=== PATIENT | female | born 1955 | race Caucasian/White ===

== ENCOUNTER 2017-10-01 00:27 | Emergency (ER) | payer BC ==
--- NOTE | 2017-10-01 00:51 | EDM.PDOC ---
ED HPI GENERAL MEDICAL PROBLEM - General Chief Complaint: Abdominal Pain Stated Complaint: STARTED WITH FLU NOW BAD STOMACH PAINS Time Seen by Provider: 10/01/17 00:51 Source of Information: Reports: Patient History Limitations: Reports: No Limitations - History of Present Illness INITIAL COMMENTS - FREE TEXT/NARRATIVE: 62-year-old female presents to the ED with history of acute onset of nausea and vomiting and profuse diarrhea 2 days after [place]--Sep 28. Subsequently has developed increasing abdominal pain. It is constant with a colicky component. Pain is rated at 8 out of 10 at this time. She reports not passing any flatus over the last 12 hours. Pain is worsened by movement and by riding in the car. Intermittent feeling of being very hot and then cold but no definitive rigors. Minimal fluid intakes such as coffee and 7-Up over the last 24 hours. No further vomiting but nausea is intermittent. Strong feeling of need to burp or belch or pass gas but unable to do so. Insulin-dependent type 2 diabetic. Patient usually takes 17 units of NovoLog with breakfast 13 units with dinner and 20 units with supper. She has not taken any insulin for 2 days due to feeling ill. And not eating. She has not been checking her sugars. Patient also uses Tradjenta 53 units at bedtime but has not taken this for 2 days either. She did take all of her normal medications yesterday morning and the stay down. Denies any chest pain or cough or sputum production. Previous abdominal surgery as a with a tubal ligation at the same time 33 years ago. Onset: Gradual Onset Date: 09/28/17 Onset Time: 20:00 Duration: Day(s): Location: Reports: Abdomen (Initial pain seemed to be right lower quadrant and then subsequently became more generalized and now hurts her.) Quality: Reports: Ache (Constant pain with a colicky component.) Severity: Severe Improves with: Reports: None Worsens with: Reports: Other (Coughing sneezing laughing and riding in the car to the hospital.), Movement Context: Denies: Activity, Exercise, Lifting, Sick Contact, Trauma, Other Associated Symptoms: Reports: Fever/Chills, Loss of Appetite, Malaise, Nausea/ Vomiting (No vomiting since September 28 evening but intermittent nausea associated with the severity of the pain.). Denies: Chest Pain, Cough, cough w sputum, Diaphoresis, Headaches, Rash ( Saturday evening. A 2 days ago), Seizure , Shortness of Breath, Syncope Treatments COMMUNICATIONS EDITOR: Reports: Other (see below) (None.) Abdomen Pain Score (Numeric/FACES): 6 - Related Data Allergies Allergy/AdvReac Type Severity Reaction Status Date / Time lisinopril Allergy Hives Verified 10/01/17 00:35 shrimp Allergy Vomiting Verified 10/01/17 00:35 Sulfa (Sulfonamide Allergy Rash Verified 10/01/17 00:35 Antibiotics) Home Meds: Home Meds Aspirin 81 mg PO DAILY 10/01/17 [History] Insulin Aspart [NovoLOG] 13 unit SQ ACLUNCH 10/01/17 [History] Insulin Aspart [NovoLOG] 17 unit SQ ACBREAKFAST 10/01/17 [History] Insulin Aspart [NovoLOG] 20 unit SQ ACDINNER 10/01/17 [History] Insulin Glargine,Hum.Rec.Anlog [Toujeo Solostar] 53 unit SQ BEDTIME 10/01/17 [ History] Triamterene/Hydrochlorothiazid [Triamterene-Hctz 50-25 mg Cap] 10/01/17 [ History] Valsartan 10/01/17 [History] Verapamil 10/01/17 [History] cloNIDine [Catapres] 10/01/17 [History] Past Medical History HEENT History: Reports: Impaired Vision Other HEENT History: Wears glasses Cardiovascular History: Reports: High Cholesterol, Hypertension Musculoskeletal History: Reports: Arthritis Psychiatric History: Reports: Depression Endocrine/Metabolic History: Reports: Diabetes, Type II (Using insulin to control her blood sugars.), Obesity/BMI 30+ - Past Surgical History GI Surgical History: Reports: Colonoscopy Female Surgical History: Reports: Section (One with a tubal ligation same time 33 years ago.), Tubal Ligation Endocrine Surgical History: Reports: Parathyroidectomy Musculoskeletal Surgical History: Reports: ORIF Social & Family History - Tobacco Use Smoking Status *Q: Never Smoker - Recreational Drug Use Recreational Drug Use: No - Living Situation & Occupation Living situation: Reports: Occupation: Employed ED ROS GENERAL - Review of Systems Review Of Systems: See Below Constitutional: Reports: Fever, Chills, Malaise, Weakness, Decreased Appetite HEENT: Reports: No Symptoms Respiratory: Reports: No Symptoms Cardiovascular: Reports: No Symptoms Endocrine: Reports: Fatigue, High Glucose, Other (Patient has known type 2 diabetes controlled with NovoLog insulin with each meal and try and Trajenta 53 units at hs. last hemoglobin A1c was reported to be 6.9.) GI/Abdominal: Reports: Abdominal Pain (See history of present illness), Diarrhea (At onset of illness 2 days ago but no bowel movement since that time.) , Decreased Appetite, Nausea, Vomiting. Denies: Difficulty Swallowing, Flatus : Reports: Frequency (She feels frequency and is an effort to help with the abdominal pain.). Denies: Incontinence Musculoskeletal: Reports: Joint Pain (Knees hips low back at times.) Skin: Reports: No Symptoms Neurological: Reports: No Symptoms Psychiatric: Reports: No Symptoms Hematologic/Lymphatic: Reports: No Symptoms ED EXAM, GI/ABD - Physical Exam Exam: See Below Exam Limited By: No Limitations General Appearance: Alert, WD/WN, Mild Distress Eyes: Bilateral: Normal Appearance (No jaundice.) Throat/Mouth: Other Head: Atraumatic (Tongue is mildly dry and coated), Normocephalic Neck: Normal Inspection, Supple, Non-Tender, Full Range of Motion Respiratory/Chest: No Respiratory Distress, Lungs Clear, Normal Breath Sounds, No Accessory Muscle Use Cardiovascular: Normal Peripheral Pulses, Regular Rate, Rhythm, No Edema, No Murmur GI/Abdominal Exam: No Abnormal Bruit, Distended (The abdomen is diffusely distended and tympanitic to percussion. It is firm to palpation.), Guarding, Tender (Throughout the abdomen suggestive of peritonitis. Not able to localize pain to any one quadrant.), Abnormal Bowel Sounds (Intermittent high-pitched bowel sounds i.e. tympanitic.), Other (Abdominal girth and distention do not allow palpation of solid organs.). No: Normal Bowel Sounds Extremities: Normal Inspection, Normal Range of Motion, Non-Tender, No Pedal Edema Neurological: Alert, Oriented, CN II-XII Intact, Normal Cognition Psychiatric: Normal Affect, Normal Mood Skin Exam: Warm, Dry, Intact, Normal Color, No Rash EKG INTERPRETATION EKG Date: 10/01/17 Time: 01:25 Rhythm: NSR Rate (Beats/Min): 95 [place]: Normal P-Wave: Present QRS: Other (Decreased voltage precordial leads.) ST-T: Other (There is a delayed repolarization pattern. T-wave flattening in V3 to V5 and aVL an inversion of T-wave 1-3 and aVF nonspecific findings.) EKG Interpretation Comments: Borderline ECG Course - Vital Signs Last Recorded V/S: Last Vital Signs Temp 36.4 C 10/01/17 00:40 Pulse 100 10/01/17 00:40 Resp 16 10/01/17 00:40 BP 165/76 H 10/01/17 00:40 Pulse Ox 94 L 10/01/17 00:40 - Orders/Labs/Meds Orders: Active Orders 24 hr Category Date Time Status Blood Glucose Check, Bedside [RC] ONETIME Care 10/01/17 03:30 Active EKG Documentation Completion [RC] STAT Care 10/01/17 01:05 Active Abdomen 1V Flat [CR] Stat Exams 10/01/17 01:05 Taken Abdomen Pelvis w Cont [CT] Stat Exams 10/01/17 02:16 Taken Chest 1V Frontal [CR] Stat Exams 10/01/17 03:41 Taken CULTURE BLOOD [BC] Stat Lab 10/01/17 01:15 Received CULTURE BLOOD [BC] Stat Lab 10/01/17 01:28 Received CULTURE URINE [RM] Stat Lab 10/01/17 01:47 Received Insulin Regular, Human [HumuLIN R] 100 unit Med 10/01/17 04:15 Active Sodium Chloride 0.9% [Normal Saline] 99 ml IV ASDIRECTED Sodium Chloride 0.9% [Normal Saline] 1,000 ml Med 10/01/17 01:15 Active IV ASDIRECTED Sodium Chloride 0.9% [Normal Saline] 1,000 ml Med 10/01/17 04:15 Active IV ASDIRECTED Blood Culture x2 Reflex Set [OM.PC] Stat Oth 10/01/17 01:06 Ordered Medication Orders Sodium Chloride (Normal Saline) 1,000 mls @ 999 mls/hr IV ASDIRECTED JENNY Last Infusion: 10/01/17 03:43 Dose: 999 mls/hr Admin: 10/01/17 01:22 Dose: 500 mls/hr Insulin Human Regular 100 unit (/ Sodium Chloride) 100 mls @ 5 mls/hr IV ASDIRECTED JENNY PRN Reason: 5 UNIT/HR Last Admin: 10/01/17 04:21 Dose: 5 unit/hr, 5 mls/hr Sodium Chloride (Normal Saline) 1,000 mls @ 999 mls/hr IV ASDIRECTED JENNY Last Admin: 10/01/17 04:20 Dose: 999 mls/hr Labs: Laboratory Tests 10/01/17 10/01/17 10/01/17 Range/Units 01:15 01:15 01:15 WBC 7.44 (3.98-10.04) K/mm3 RBC 4.72 (3.98-5.22) M/mm3 Hgb 14.0 (11.2-15.7) gm/L Hct 42.4 (34.1-44.9) % MCV 89.8 (79.4-94.8) fl MCH 29.7 (25.6-32.2) pg MCHC 33.0 (32.2-35.5) g/dl RDW Std Deviation 46.2 (36.4-46.3) fL Plt Count 207 (182-369) K/mm3 MPV 11.5 (9.4-12.3) fl Neutrophils % (Manual) 59 (40-60) % Band Neutrophils % 14 H (0-10) % Lymphocytes % (Manual) 25 (20-40) % Atypical Lymphs % 0 % Monocytes % (Manual) 2 (2-10) % Eosinophils % (Manual) 0 L (0.7-5.8) % Basophils % (Manual) 0 L (0.1-1.2) Platelet Estimate Adequate Plt Morphology Comment Normal Anisocytosis 1+ sligh RBC Morph Comment Not Reportable ESR 61 H (0-20) mm/hr Sodium 138 (136-145) mEq/L Potassium 2.9 L (3.5-5.1) mEq/L Chloride 96 L (98-107) mEq/L Carbon Dioxide 29 (21-32) mEq/L Anion Gap 15.9 H (5-15) BUN 29 H (7-18) mg/dL Creatinine 1.7 H (0.55-1.02) mg/dL Est Cr Clr Drug Dosing TNP Estimated GFR (MDRD) 30 (>60) mL/min BUN/Creatinine Ratio 17.1 (14-18) Glucose 354 H (80-115) mg/dL POC Glucose (80-115) mg/dL Lactic Acid (0.4-2.0) mmol/L Calcium 9.3 (8.5-10.1) mg/dL Magnesium (1.8-2.4) mg/dl Total Bilirubin 1.8 H (0.2-1.0) mg/dL AST 10 L (15-37) U/L ALT 16 (14-59) U/L Alkaline Phosphatase 55 (46-116) U/L Troponin I (0.00-0.056) ng/mL C-Reactive Protein 45.8 H* (<1.0) mg/dL Total Protein 7.8 (6.4-8.2) g/dl Albumin 3.4 (3.4-5.0) g/dl Globulin 4.4 gm/dL Albumin/Globulin Ratio 0.8 L (1-2) Lipase 70 L (73-393) U/L Urine Color (Yellow) Urine Appearance (Clear) Urine pH (5.0-8.0) Ur Specific [place] (1.005-1.030) Urine Protein (Negative) Urine Glucose (UA) (Negative) Urine Ketones (Negative) Urine Occult Blood (Negative) Urine Nitrite (Negative) Urine Bilirubin (Negative) Urine Urobilinogen (0.2-1.0) Ur Leukocyte Esterase (Negative) Urine RBC (0-5) /hpf Urine WBC (0-5) /hpf Ur Epithelial Cells (0-5) /hpf Urine Bacteria (FEW) /hpf Urine Mucus (FEW) /hpf 10/01/17 10/01/17 10/01/17 Range/Units 01:15 01:15 01:47 WBC (3.98-10.04) K/mm3 RBC (3.98-5.22) M/mm3 Hgb (11.2-15.7) gm/L Hct (34.1-44.9) % MCV (79.4-94.8) fl MCH (25.6-32.2) pg MCHC (32.2-35.5) g/dl RDW Std Deviation (36.4-46.3) fL Plt Count (182-369) K/mm3 MPV (9.4-12.3) fl Neutrophils % (Manual) (40-60) % Band Neutrophils % (0-10) % Lymphocytes % (Manual) (20-40) % Atypical Lymphs % % Monocytes % (Manual) (2-10) % Eosinophils % (Manual) (0.7-5.8) % Basophils % (Manual) (0.1-1.2) Platelet Estimate Plt Morphology Comment Anisocytosis RBC Morph Comment ESR (0-20) mm/hr Sodium (136-145) mEq/L Potassium (3.5-5.1) mEq/L Chloride (98-107) mEq/L Carbon Dioxide (21-32) mEq/L Anion Gap (5-15) BUN (7-18) mg/dL Creatinine (0.55-1.02) mg/dL Est Cr Clr Drug Dosing Estimated GFR (MDRD) (>60) mL/min BUN/Creatinine Ratio (14-18) Glucose (80-115) mg/dL POC Glucose (80-115) mg/dL Lactic Acid 3.5 H (0.4-2.0) mmol/L Calcium (8.5-10.1) mg/dL Magnesium 1.8 (1.8-2.4) mg/dl Total Bilirubin (0.2-1.0) mg/dL AST (15-37) U/L ALT (14-59) U/L Alkaline Phosphatase (46-116) U/L Troponin I < 0.017 (0.00-0.056) ng/mL C-Reactive Protein (<1.0) mg/dL Total Protein (6.4-8.2) g/dl Albumin (3.4-5.0) g/dl Globulin gm/dL Albumin/Globulin Ratio (1-2) Lipase (73-393) U/L Urine Color Yellow (Yellow) Urine Appearance Slt cloudy H (Clear) Urine pH 5.5 (5.0-8.0) Ur Specific [place] 1.020 (1.005-1.030) Urine Protein 2+ H (Negative) Urine Glucose (UA) 2+ H (Negative) Urine Ketones 1+ H (Negative) Urine Occult Blood 2+ H (Negative) Urine Nitrite Negative (Negative) Urine Bilirubin Negative (Negative) Urine Urobilinogen 0.2 (0.2-1.0) Ur Leukocyte Esterase Negative (Negative) Urine RBC 0-5 (0-5) /hpf Urine WBC 5-10 H (0-5) /hpf Ur Epithelial Cells 0-5 (0-5) /hpf Urine Bacteria Rare (FEW) /hpf Urine Mucus Not seen (FEW) /hpf 10/01/17 Range/Units 03:59 WBC (3.98-10.04) K/mm3 RBC (3.98-5.22) M/mm3 Hgb (11.2-15.7) gm/L Hct (34.1-44.9) % MCV (79.4-94.8) fl MCH (25.6-32.2) pg MCHC (32.2-35.5) g/dl RDW Std Deviation (36.4-46.3) fL Plt Count (182-369) K/mm3 MPV (9.4-12.3) fl Neutrophils % (Manual) (40-60) % Band Neutrophils % (0-10) % Lymphocytes % (Manual) (20-40) % Atypical Lymphs % % Monocytes % (Manual) (2-10) % Eosinophils % (Manual) (0.7-5.8) % Basophils % (Manual) (0.1-1.2) Platelet Estimate Plt Morphology Comment Anisocytosis RBC Morph Comment ESR (0-20) mm/hr Sodium (136-145) mEq/L Potassium (3.5-5.1) mEq/L Chloride (98-107) mEq/L Carbon Dioxide (21-32) mEq/L Anion Gap (5-15) BUN (7-18) mg/dL Creatinine (0.55-1.02) mg/dL Est Cr Clr Drug Dosing Estimated GFR (MDRD) (>60) mL/min BUN/Creatinine Ratio (14-18) Glucose (80-115) mg/dL POC Glucose 386 H (80-115) mg/dL Lactic Acid (0.4-2.0) mmol/L Calcium (8.5-10.1) mg/dL Magnesium (1.8-2.4) mg/dl Total Bilirubin (0.2-1.0) mg/dL AST (15-37) U/L ALT (14-59) U/L Alkaline Phosphatase (46-116) U/L Troponin I (0.00-0.056) ng/mL C-Reactive Protein (<1.0) mg/dL Total Protein (6.4-8.2) g/dl Albumin (3.4-5.0) g/dl Globulin gm/dL Albumin/Globulin Ratio (1-2) Lipase (73-393) U/L Urine Color (Yellow) Urine Appearance (Clear) Urine pH (5.0-8.0) Ur Specific [place] (1.005-1.030) Urine Protein (Negative) Urine Glucose (UA) (Negative) Urine Ketones (Negative) Urine Occult Blood (Negative) Urine Nitrite (Negative) Urine Bilirubin (Negative) Urine Urobilinogen (0.2-1.0) Ur Leukocyte Esterase (Negative) Urine RBC (0-5) /hpf Urine WBC (0-5) /hpf Ur Epithelial Cells (0-5) /hpf Urine Bacteria (FEW) /hpf Urine Mucus (FEW) /hpf Meds: Medications Generic Name Dose Route Start Last Admin Trade Name Freq PRN Reason Stop Dose Admin Sodium Chloride 1,000 mls @ 999 mls/hr 10/01/17 01:15 10/01/17 03:43 Normal Saline IV Infused ASDIRECTED JENNY Infusion Insulin Human Regular 100 unit 100 mls @ 5 mls/hr 10/01/17 04:15 10/01/17 04: 21 / Sodium Chloride IV 5 unit/hr ASDIRECTED JENNY 5 mls/hr 5 UNIT/HR Administration Sodium Chloride 1,000 mls @ 999 mls/hr 10/01/17 04:15 10/01/17 04:20 Normal Saline IV 999 mls/hr ASDIRECTED JENNY Administration Discontinued Medications Generic Name Dose Route Start Last Admin Trade Name Freq PRN Reason Stop Dose Admin Diatrizoate Meglum/Diatrizoate Sod 90 ml 10/01/17 03:04 10/01/17 03:29 Gastrografin 37% PO 10/01/17 03:05 90 ml ONETIME ONE Administration Hydromorphone HCl 1 mg 10/01/17 01:04 10/01/17 01:22 Dilaudid IVPUSH 10/01/17 01:05 1 mg ONETIME ONE Administration Hydromorphone HCl 1 mg 10/01/17 04:46 Dilaudid IVPUSH 10/01/17 04:47 ONETIME ONE Cefoxitin Sodium 2 gm/ Premix 50 mls @ 100 mls/hr 10/01/17 02:23 10/01/17 02: 37 IV 10/01/17 02:52 100 mls/hr ONETIME ONE Administration Metronidazole 500 mg/ Premix 100 mls @ 100 mls/hr 10/01/17 02:23 10/01/17 03: 36 IV 10/01/17 03:22 100 mls/hr ONETIME ONE Administration Potassium Chloride 10 meq/ 100 mls @ 100 mls/hr 10/01/17 02:24 10/01/17 02:42 Premix IV 10/01/17 03:23 100 mls/hr ONETIME ONE Administration Potassium Chloride 10 meq/ 100 mls @ 100 mls/hr 10/01/17 03:30 10/01/17 04:24 Premix IV 10/01/17 04:29 100 mls/hr ONETIME ONE Administration Insulin Human Regular 20 unit 10/01/17 02:28 10/01/17 02:44 Humulin R SUBCUT 10/01/17 02:29 20 unit ONETIME ONE Administration Protocol Iopamidol 100 ml 10/01/17 03:04 10/01/17 03:29 Isovue-370 (76%) IVPUSH 10/01/17 03:05 100 ml ONETIME ONE Administration Metoclopramide HCl 10 mg 10/01/17 01:05 10/01/17 01:22 Reglan IVPUSH 10/01/17 01:06 10 mg ONETIME ONE Administration - Radiology Interpretation Free Text/Narrative:: 62-year-old female presents to the ED with acute onset of nausea vomiting and diarrhea Saturday night this was September 28. No Edson the family became ill. Subsequently she has continued to have diffuse abdominal pain which seemed to start in the right lower eyelid and then become more diffuse. She presents with constant abdominal pain with a colicky component this time. She denies ability to pass any flatus for at least 12 hours and perhaps longer. She advised the pain is worse with movement sitting coughing laughing suggestive of peritonitis. Didn't feeling of being hot and cold chilled but no definitive rigors or fever detected. Taking small quantities of fluid orally but not enough to support hydration 2 days. Not able to eat at all. Intermittent nausea without any vomiting since Saturday. Examination reveals high- pitched bowel sounds throughout the abdomen. She is distended intubated to percussion in multiple areas firm to palpation with no ability to localize the pain to one quadrant versus the other. Clinically she has acute peritonitis with an ileus or less likely a bowel obstruction. Plan IV normal saline at 500 mils per hour. Dilaudid 1 mg IV with Reglan 10 mg IV for acute nausea and pain relief. One view of the abdomen to be performed. Labs to include a serum lipase and lactic acid. - Re-Assessments/Exams Free Text/Narrative Re-Assessment/Exam: 10/01/17 02:00: KUB reveals several nonspecific dilated loops of small bowel with minimal air in the large bowel suggestive of an ileus type pattern. There is no evidence of bowel obstruction. Question whether there is some fluid in the pelvis. ECG reveals sinus rhythm at 95/m. There is decreased voltage throughout the precordial leads due to her thick chest. There is a delayed repolarization pattern and T-wave flattening in V3 to V5 and aVL and inversion of the T waves 123 and aVF. Patient reports pain is improved but still present. She is thirsty and requesting fluids. She'll be started on all contrast at this time for CT of the abdomen and pelvis. Concern for ruptured appendix or diverticulitis as a source of her abdominal pain. Will not be allowed clear fluids as she clinically is a surgical abdomen. 10/01/17 02:20 Labs reveal a white count of 7.44 with 59% neutrophils and 14% bands. Hemoglobin is 14.0 hematocrit is 42.4 platelets are normal at 207,000. Sodium was 138 potassium is low at 2.9 chloride 96 bicarbonate 29. Anion gap is 15.9 B1 is 29. Creatinine is 1.7.. EGFR is only 30 i.e. staged 3 chronic kidney disease. Glucose is elevated at 354 .Lactic acid is elevated at 3.5. Bilirubin elevated at 1.8. AST is 10. ALT is 16. Troponin I is less than 0.017. Albumin slightly low at 3.4. Lipase normal at 70. Urinalysis shows 2+ protein 2+ glucose 1+ ketones and 2+ occult blood on exam. There are 5-10 WBCs noted on microscopic urinalysis. Urine culture ordered. This supports my clinical impression of a acute infective process in the abdomen. She does require rehydration and we'll give her dose of insulin subcutaneously--20 units of NovoLog to be given subcutaneous.. She has fairly significant hypokalemia and will be given potassium chloride 10 mg IV. Will give 2 g of Mefoxin IV followed by Flagyl 500 mg IV. So far patient has been able to keep her oral contrast and without any exacerbation of abdominal pain or vomiting. 10/01/17 03:01 CRP has returned markedly elevated at 45.8 compatible with bacterial infection. 10/01/17 03:38 CT of the abdomen and pelvis has been completed. It reveals mild basillar atelectasis bilaterally. Liver spleen and pancreas appear normal. Small hiatal hernia noted without reflux. Abdominal aorta is normal. There is a small of free intraperitoneal air appreciated. Contrast does fill the stomach and most of the small bowel. There is evidence of inflammatory reaction in the right lower quadrant with diffuse infiltrate surrounding the appendix compatible with a ruptured appendicitis . There is an appendicolith as well. Periappendiceal inflammatory changes reveal a collection of 4.9 x 2.5 cm. The appendix appears to be dilated up to about 12 mm. There is a small amount of gas around the appendix. There is mild thickening of the distal cecum compatible with a ceccitis. She is due for a blood sugar at 0330 hrs. and will give second 10 mg potassium IV as well. She will require stabilization of her metabolic abnormalities before pursuing surgical management. 10/01/17 04:02 discussed the findings with the patient and her spouse. She will likely require hospitalization balloon beyond a 96 hour keaynna allowed by her critical care hospital and she is therefore better served in a larger center. She has records at [facility] where she has been in the past. She prefers to travel to that institution. Tentatively will be sending her to that institution per ambulance once I have an accepting physician. 10/01/17 04:[address] Jordan--general surgeon on-call at [facility] in [place] and he has accepted care of the patient. At this time she' ll most likely go to the ER for further laboratory workup before proposed operative management of her ruptured appendix. Repeat blood sugar reveals it's going up . It is recorded at 386. I will therefore start an insulin drip at 5 units an hour. Note she has a normal anion gap. She is just starting her second minibag of potassium 10 mEq IV. 10/01/17 04:47 patient is been very stoic. Abdominal pain is increasing or she' s much more aware of it at this time and therefore I will give her Dilaudid 1 mg IV. [facility] here to provide transport to [place] at this time. Flagyl has been completed. Her drips will include potassium chloride 10 mg IV piggyback. Insulin drip at 5 units an hour and normal saline at open. Departure - Departure Time of Disposition: 04:49 Disposition: DC/Tfer to Acute Hospital 02 Condition: Serious Clinical Impression: Ruptured suppurative appendicitis, Hypokalemia, Free intraperitoneal air Hyperglycemia due to type 2 diabetes mellitus Qualifiers: Diabetes mellitus terminal system operator insulin use: with group home use Qualified Code(s): E11.65 - Type 2 diabetes mellitus with hyperglycemia; Z79.4 - custodial (current ) use of insulin; Z79.4 - technician terminal and repeater (current) use of insulin; Z79.4 - technician terminal and repeater (current) use of insulin; Z79.4 - technician terminal and repeater (current) use of insulin - Discharge Information Referrals: PCP,Not In Area [Primary Care Provider] - Forms: ED Department Discharge Additional Instructions: Patient transferred to [place] for intraoperative intervention of ruptured appendicitis. She has multiple comorbidities with uncontrolled hyperglycemia due to type 2 diabetes and hypokalemia. It is felt that she will be requiring hospitalization greater than 96 hours provided by critical care [facility]. Transferred to [facility] in [place] under the care of Dr. Kathryn Jordan. - My Orders Last 24 Hours: My Active Orders 10/01/17 01:05 EKG Documentation Completion [RC] STAT Abdomen 1V Flat [CR] Stat 10/01/17 01:06 Blood Culture x2 Reflex Set [OM.PC] Stat 10/01/17 01:15 CULTURE BLOOD [BC] Stat Sodium Chloride 0.9% [Normal Saline] 1,000 ml IV ASDIRECTED 10/01/17 01:28 CULTURE BLOOD [BC] Stat 10/01/17 01:47 CULTURE URINE [RM] Stat 10/01/17 02:16 Abdomen Pelvis w Cont [CT] Stat 10/01/17 03:30 Blood Glucose Check, Bedside [RC] ONETIME 10/01/17 03:41 Chest 1V Frontal [CR] Stat 10/01/17 04:15 Insulin Regular, Human [HumuLIN R] 100 unit Sodium Chloride 0.9% [Normal Saline] 99 ml IV ASDIRECTED Sodium Chloride 0.9% [Normal Saline] 1,000 ml IV ASDIRECTED - Assessment/Plan Last 24 Hours: My Active Orders 10/01/17 01:05 EKG Documentation Completion [RC] STAT Abdomen 1V Flat [CR] Stat 10/01/17 01:06 Blood Culture x2 Reflex Set [OM.PC] Stat 10/01/17 01:15 CULTURE BLOOD [BC] Stat Sodium Chloride 0.9% [Normal Saline] 1,000 ml IV ASDIRECTED 10/01/17 01:28 CULTURE BLOOD [BC] Stat 10/01/17 01:47 CULTURE URINE [RM] Stat 10/01/17 02:16 Abdomen Pelvis w Cont [CT] Stat 10/01/17 03:30 Blood Glucose Check, Bedside [RC] ONETIME 10/01/17 03:41 Chest 1V Frontal [CR] Stat 10/01/17 04:15 Insulin Regular, Human [HumuLIN R] 100 unit Sodium Chloride 0.9% [Normal Saline] 99 ml IV ASDIRECTED Sodium Chloride 0.9% [Normal Saline] 1,000 ml IV ASDIRECTED
[2017-10-01] MEDS ORDERED: HYDROmorphone 1 MG/ML Syringe IVPUSH ONE ×2 (01:04→04:46)
[2017-10-01] MEDS ORDERED: Metoclopramide 10 MG/2 ML SDV IVPUSH ONE (01:05)
[2017-10-01] MEDS ORDERED: Sodium Chloride 0.9% 1,000 ML IV SCH ×2 (01:15→04:15)
[2017-10-01] MEDS ORDERED: cefOXitin 2 GM in Premix Bag 1 BAG IV ONE (02:23)
[2017-10-01] MEDS ORDERED: metroNIDAZOLE/Normal Saline 500 MG in Premix Bag 1 BAG IV ONE (02:23)
[2017-10-01] MEDS ORDERED: Potassium Chloride 10 MEQ in Premix Bag 1 BAG IV ONE ×2 (02:24→03:30)
[2017-10-01] MEDS ORDERED: Insulin Regular, Human 100 Units/ML 3 ML Vial SUBCUT ONE (02:28)
[2017-10-01] MEDS ORDERED: Iopamidol 755 Mg/ML 100 ML Bottle IVPUSH ONE (03:04)
[2017-10-01] MEDS ORDERED: Diatrizoate Meglumine/Diatrizoate Sodium 37% 120 ML Bottle PO ONE (03:04)
--- NOTE | 2017-10-01 11:38 | CR ---
Abdomen: Supine view of the abdomen was obtained. Comparison: No prior abdominal imaging. Slightly prominent small bowel gas is noted within the abdomen likely representing mild ileus. Bowel gas pattern is otherwise unremarkable. Degenerative spurring is noted within the spine. Minimal vascular calcification is noted. Impression: 1. Slightly prominent small bowel gas most likely representing mild ileus. 2. Other incidental findings. Diagnostic code #3
--- NOTE | 2017-10-01 11:38 | CR ---
Chest: Portable view of the chest was obtained. Comparison: No prior study. Heart size and mediastinum are normal. Lungs are clear. Bony structures are grossly intact. Several surgical clips are seen at the base of the neck. Impression: 1. Nothing acute is appreciated on portable chest x-ray. Diagnostic code #1
--- NOTE | 2017-10-01 13:07 | CT ---
CT abdomen and pelvis Technique: Multiple axial sections were obtained from the top of the liver inferiorly through the pubic symphysis. Intravenous and oral contrast was utilized. Comparison: Prior abdominal x-ray performed earlier on the same day (time 1:23 AM). Findings: Dilated appendix is seen which contains several appendicoliths. Diffuse surrounding inflammatory change is seen compatible with appendicitis. Fluid is identified within the dependent portions of the pelvis which could represent pus or reactive fluid. Visualized lung bases show nothing acute. Liver shows no focal parenchymal abnormality. Small hiatal hernia seen with mild gastroesophageal reflux of contrast. Spleen appears within normal limits. Adrenal glands show no nodule. Gallbladder contains no calcified gallstones. Pancreas is within normal limits. Kidneys show symmetric contrast enhancement. Small cyst is identified within the left kidney measuring about 1.0 cm. Aorta shows atherosclerotic change without aneurysmal dilatation. No retroperitoneal adenopathy is seen. No pelvic mass or adenopathy is seen. Delayed images shows contrast within both distal ureters and within the bladder. Bone window settings were reviewed which show mild scattered degenerative change within the spine. Impression: 1. Findings compatible with rather severe appendicitis. Fluid within the pelvis is seen either due to pus or reactive fluid. Several appendicoliths are also seen. 2. Other incidental findings as noted above. Diagnostic code #5 I agree with preliminary report issued by [facility] ([facility] report finalized on 10/01/17, 4:51 AM Central Time)
== END 2017-10-01 05:01 ==
LOC: JD.ED 00:27
DX: K35.80 Unspecified acute appendicitis (principal); E87.6 Hypokalemia; E11.65 Type 2 diabetes mellitus with hyperglycemia; I10 Essential (primary) hypertension; Z88.2 Allergy status to sulfonamides; Z91.013 Allergy to seafood; Z88.8 Allergy status to other drugs, medicaments and biological substances; Z79.4 Long term (current) use of insulin; Z79.899 Other long term (current) drug therapy
CPT/HCPCS: 36415; 71010; 74000; 74177; 80053; 81001; 82962; 83605; 83690; 83735; 84484; 85025; 85652; 86140; 87040; 87086; 93005; 96361; 96365; 96366; 96367; 96368; 96372; 96375; 99285; J0694; J1170; J1817; J2765; J3480; J7030; J7040; Q9963; Q9967; 93010

== ENCOUNTER 2017-10-25 18:44 | Emergency (ER) | payer BC ==
--- NOTE | 2017-10-25 19:28 | EDM.PDOC ---
ED HPI GENERAL MEDICAL PROBLEM - General Chief Complaint: Abdominal Pain Stated Complaint: HAD APPENDIX SURGERY NOW BLOOD IN STOOL Time Seen by Provider: 10/25/17 18:58 Source of Information: Reports: Patient, Family (, daughter), Old Records , RN Notes Reviewed History Limitations: Reports: No Limitations - History of Present Illness INITIAL COMMENTS - FREE TEXT/NARRATIVE: The patient states that she developed bloody diarrhea around 17:00 this afternoon. She states that she has had 4 episodes thus far. She denies associated abdominal pain, although acknowledges that she has slight cramps. No recent fever. She has nausea related to the taking of antibiotics and probiotics , but no recent change in her nausea. No recent emesis. No recent lightheadedness. No dyspnea, chest pain, or palpitations. No prior history of hematochezia. The patient developed nausea, emesis, watery diarrhea, and increasing abdominal pain on 09/28/2017. Medical records indicate that she was seen in this ED on , where a CT scan of the abdomen and pelvis with oral and IV contrast was treated findings consistent with a perforated appendicitis. She was started on IV Mefoxin and Flagyl prior to transfer to [facility]. She states that an abdominal drain was placed initially. She states that she was diagnosed with C. difficile on 10/03/2017, and was started on IV antibiotics. She went to the operating room for the perforated appendix on 2016, and was discharged home on 10/14/2017. She states that she is currently on oral Flagyl and oral vancomycin, and finished a ten-day course of oral Augmentin yesterday, although she states that her stool has not been retested for C. difficile since it was initially diagnosed. The patient states that she is also on probiotics. No recent spoiled food. No recent travel. No similarly ill contacts. - Related Data Allergies Allergy/AdvReac Type Severity Reaction Status Date / Time lisinopril Allergy Hives Verified 10/01/17 00:35 shrimp Allergy Vomiting Verified 10/01/17 00:35 Sulfa (Sulfonamide Allergy Rash Verified 10/01/17 00:35 Antibiotics) Home Meds: Home Meds cloNIDine [Catapres] 0.2 mg PO BID 10/01/17 [History] Calcium Carbonate [Calcium] 1,250 mg PO BID 10/25/17 [History] Citalopram Hydrobromide [Celexa] 20 mg PO DAILY 10/25/17 [History] Insulin Glargine,Hum.Rec.Anlog [Lori Sylvesterblancadarell] 38 unit PO BEDTIME 10/25/17 [ History] Lactobacillus Rhamnosus GG [Culturelle] 1 cap PO DAILY 10/25/17 [History] Magnesium 400 mg PO DAILY 10/25/17 [History] Novalog 13 unit INJECT ASDIRECTED 10/25/17 [History] Novalog 15 unit INJECT ASDIRECTED 10/25/17 [History] Valsartan 160 mg PO DAILY 10/25/17 [History] Vancomycin HCl 125 mg PO QID 10/25/17 [History] Verapamil [Calan SR] 240 mg PO BEDTIME 10/25/17 [History] metroNIDAZOLE [Flagyl] 500 mg PO BID 10/25/17 [History] Past Medical History HEENT History: Reports: Impaired Vision Other HEENT History: Wears glasses Cardiovascular History: Reports: High Cholesterol, Hypertension Musculoskeletal History: Reports: Arthritis Psychiatric History: Reports: Depression Endocrine/Metabolic History: Reports: Diabetes, Type II, Obesity/BMI 30+ - Infectious Disease History Infectious Disease History: Reports: C-Difficile Other Infectious Disease History: pt is placed on isolation - Past Surgical History GI Surgical History: Reports: Appendectomy (10/07/2017), Colon (Hemicolectomy 10/07/2017), Colonoscopy Female Surgical History: Reports: Section, Tubal Ligation Endocrine Surgical History: Reports: Parathyroidectomy Musculoskeletal Surgical History: Reports: ORIF Social & Family History - Tobacco Use Smoking Status *Q: Never Smoker - Recreational Drug Use Recreational Drug Use: No - Living Situation & Occupation Living situation: Reports: Occupation: Employed ED ROS GENERAL - Review of Systems Review Of Systems: ROS reveals no pertinent complaints other than HPI. ED EXAM, GI/ABD - Physical Exam Exam: See Below Exam Limited By: No Limitations General Appearance: Alert, WD/WN, No Apparent Distress Eyes: Bilateral: Normal Appearance, EOMI Ears: Normal External Exam, Hearing Grossly Normal Nose: Normal Inspection, No Blood Throat/Mouth: Normal Inspection, Normal Lips, Normal Voice, No Airway Compromise Head: Atraumatic, Normocephalic Neck: Normal Inspection, Full Range of Motion Respiratory/Chest: No Respiratory Distress, Lungs Clear, Normal Breath Sounds, No Accessory Muscle Use Cardiovascular: Normal Peripheral Pulses, Regular Rate, Rhythm, No Gallop, No JVD, No Murmur, No Rub GI/Abdominal Exam: Normal Bowel Sounds, Soft, No Organomegaly, No Distention, No Abnormal Bruit, No Mass, Pelvis Stable, Tender (Minimal hayley-incisional tenderness, otherwise abdomen is nontender), Other (Well-healing midline infra- umbilical surgical wound) (Female) Exam: Deferred Rectal (Female) Exam: Bloody Stool, Heme + Stool Back Exam: Normal Inspection, Full Range of Motion, NT Extremities: Normal Inspection, Normal Range of Motion, Normal Capillary Refill , Other (Trace bilateral pretibial edema) Neurological: Alert, Oriented, Normal Cognition, No Motor/Sensory Deficits Psychiatric: Normal Affect Skin Exam: Warm, Dry, Intact, Normal Color, No Rash Course - Vital Signs Last Recorded V/S: Last Vital Signs Temp 36.4 C 10/25/17 18:58 Pulse 69 10/25/17 18:58 Resp 20 10/25/17 18:58 BP 198/75 H 10/25/17 18:58 Pulse Ox 99 10/25/17 18:58 Orthostatic Blood Pressure [ 172/81 Standing] Orthostatic Blood Pressure [ 176/79 Sitting] Orthostatic Blood Pressure [ 180/76 Supine] - Orders/Labs/Meds Orders: Active Orders 24 hr Category Date Time Status Orthostatic Vital Signs [RC] STAT Care 10/25/17 19:22 Active CULTURE STOOL + SHIGATOX [RM] Stat Lab 10/25/17 19:35 Received [employer] 1 & 2 RT-PCR Stat Lab 10/25/17 19:35 Received Sodium Chloride 0.9% [Normal Saline] 1,000 ml Med 10/25/17 20:45 Active IV ASDIRECTED Medication Orders Sodium Chloride (Normal Saline) 1,000 mls @ 150 mls/hr IV ASDIRECTED JENNY Last Admin: 10/25/17 21:00 Dose: 150 mls/hr Labs: Laboratory Tests 10/25/17 10/25/17 10/25/17 Range/Units 19:35 19:54 19:54 WBC 7.64 (3.98-10.04) K/mm3 RBC 3.26 L (3.98-5.22) M/mm3 Hgb 9.6 L (11.2-15.7) gm/L Hct 30.3 L (34.1-44.9) % MCV 92.9 (79.4-94.8) fl MCH 29.4 (25.6-32.2) pg MCHC 31.7 L (32.2-35.5) g/dl RDW Std Deviation 50.3 H (36.4-46.3) fL Plt Count 312 (182-369) K/mm3 MPV 10.8 (9.4-12.3) fl Neutrophils % (Manual) 59 (40-60) % Band Neutrophils % 0 (0-10) % Lymphocytes % (Manual) 22 (20-40) % Atypical Lymphs % 0 % Monocytes % (Manual) 9 (2-10) % Eosinophils % (Manual) 9 H (0.7-5.8) % Basophils % (Manual) 1 (0.1-1.2) Platelet Estimate Adequate Plt Morphology Comment Normal Hypochromasia 1+ slight Poikilocytosis 1+ slight Anisocytosis 1+ slight Microcytosis 2+ moderate RBC Morph Comment Not Reportable PT (8.0-13.0) SECONDS INR APTT (22-36) SECONDS Sodium 147 H (136-145) mEq/L Potassium 3.0 L (3.5-5.1) mEq/L Chloride 110 H (98-107) mEq/L Carbon Dioxide 25 (21-32) mEq/L Anion Gap 15.0 (5-15) BUN 35 H (7-18) mg/dL Creatinine 1.5 H (0.55-1.02) mg/dL Est Cr Clr Drug Dosing 34.54 mL/min Estimated GFR (MDRD) 35 (>60) mL/min BUN/Creatinine Ratio 23.3 H (14-18) Glucose 93 (80-115) mg/dL Calcium 8.4 L (8.5-10.1) mg/dL Magnesium 1.6 L (1.8-2.4) mg/dl Total Bilirubin 0.2 (0.2-1.0) mg/dL AST 15 (15-37) U/L ALT 14 (14-59) U/L Alkaline Phosphatase 51 (46-116) U/L Total Protein 7.2 (6.4-8.2) g/dl Albumin 3.3 L (3.4-5.0) g/dl Globulin 3.9 gm/dL Albumin/Globulin Ratio 0.9 L (1-2) C.difficile [id number]-[id number] Presumptive negative C. difficile Tox (PCR) Negative 10/25/17 Range/Units 19:54 WBC (3.98-10.04) K/mm3 RBC (3.98-5.22) M/mm3 Hgb (11.2-15.7) gm/L Hct (34.1-44.9) % MCV (79.4-94.8) fl MCH (25.6-32.2) pg MCHC (32.2-35.5) g/dl RDW Std Deviation (36.4-46.3) fL Plt Count (182-369) K/mm3 MPV (9.4-12.3) fl Neutrophils % (Manual) (40-60) % Band Neutrophils % (0-10) % Lymphocytes % (Manual) (20-40) % Atypical Lymphs % % Monocytes % (Manual) (2-10) % Eosinophils % (Manual) (0.7-5.8) % Basophils % (Manual) (0.1-1.2) Platelet Estimate Plt Morphology Comment Hypochromasia Poikilocytosis Anisocytosis Microcytosis RBC Morph Comment PT 11.0 (8.0-13.0) SECONDS INR 1.01 APTT 25 (22-36) SECONDS Sodium (136-145) mEq/L Potassium (3.5-5.1) mEq/L Chloride (98-107) mEq/L Carbon Dioxide (21-32) mEq/L Anion Gap (5-15) BUN (7-18) mg/dL Creatinine (0.55-1.02) mg/dL Est Cr Clr Drug Dosing mL/min Estimated GFR (MDRD) (>60) mL/min BUN/Creatinine Ratio (14-18) Glucose (80-115) mg/dL Calcium (8.5-10.1) mg/dL Magnesium (1.8-2.4) mg/dl Total Bilirubin (0.2-1.0) mg/dL AST (15-37) U/L ALT (14-59) U/L Alkaline Phosphatase (46-116) U/L Total Protein (6.4-8.2) g/dl Albumin (3.4-5.0) g/dl Globulin gm/dL Albumin/Globulin Ratio (1-2) C.difficile [id number] C. difficile Tox (PCR) Meds: Medications Generic Name Dose Route Start Last Admin Trade Name Freq PRN Reason Stop Dose Admin Sodium Chloride 1,000 mls @ 150 mls/hr 10/25/17 20:45 10/25/17 21:00 Normal Saline IV 150 mls/hr ASDIRECTED JENNY Administration Discontinued Medications Generic Name Dose Route Start Last Admin Trade Name Freq PRN Reason Stop Dose Admin Magnesium Sulfate 2 gm/ Premix 50 mls @ 50 mls/hr 10/25/17 20:42 10/25/17 21: 00 IV 10/25/17 21:41 50 mls/hr ONETIME ONE Administration - Re-Assessments/Exams Free Text/Narrative Re-Assessment/Exam: 10/25/17 19:58 The patient is not orthostatic. 10/25/17 20:45 The patient's potassium was found to be depressed at 3.0, with a magnesium depressed at 1.6. Her potassium was 2.9 on 10/01/2017. Her BUN/Cr is elevated at 35/1.5 today. It was 29/1.7 on 10/01/2017. I have ordered a 2 g magnesium rider to correct the patient's hypomagnesemia, after which she will require potassium replacement. I have also ordered normal saline at 150 mL per hour to address her renal dysfunction. The electrolyte correction will require time, therefore I am going to recommend that she be admitted to the hospital. The patient's C. difficile is negative, and the remainder of her workup is unremarkable. She is anemic, but not to the degree that transfusion would be considered. 10/25/17 21:13 Test results discussed with the patient, her , and daughter. As above, I am recommending admission to the hospital for IV fluid, replacement of her magnesium and placement of potassium. In addition, she could be seen by the surgeon in the morning to discuss her hematochezia and formulate a plan going forward, that I would suspect would be an outpatient colonoscopy. The patient is agreeable to coming into the hospital. 10/25/17 21:[address] Sesay at 21:14. He would like me to discuss the case with the Surgeon Dr. Rust prior to accepting the patient. 10/25/17 21:[address] Rust at 21:19. He is concerned that the patient's lower GI bleed may be a complication from her appendectomy/hemicolectomy, and as such, she should be transferred back to [facility]. Further, he believes that a colonoscopy within 6 weeks of the hemicolectomy would be contraindicated. 10/25/17 21:[address] Hidalgo, Surgeon registration rep for Dr. Jordan, at [facility], at 21:32. He recommends that we admit the patient to the Hospitalist, with him on consult. Case then discussed with Dr. Campos, Hospitalist at [facility], at 21: 41. She accepts the patient for transfer. As the patient is receiving IV fluid, we will transfer her by ground ambulance. 10/25/17 21:55 The above was discussed with the patient, her , and daughter. The patient is agreeable to transfer to [facility]. Departure - Departure Time of Disposition: 21:55 Disposition: DC/Tfer to Acute Hospital 02 Condition: Fair Clinical Impression: Hypomagnesemia, Hypokalemia, Renal insufficiency, Hematochezia - Discharge Information - My Orders Last 24 Hours: My Active Orders 10/25/17 19:22 Orthostatic Vital Signs [RC] STAT 10/25/17 19:35 CULTURE STOOL + SHIGATOX [RM] Stat [employer] 1 & 2 RT-PCR Stat 10/25/17 20:45 Sodium Chloride 0.9% [Normal Saline] 1,000 ml IV ASDIRECTED - Assessment/Plan Last 24 Hours: My Active Orders 10/25/17 19:22 Orthostatic Vital Signs [RC] STAT 10/25/17 19:35 CULTURE STOOL + SHIGATOX [RM] Stat [employer] [employer] 1 & 2 RT-PCR Stat 10/25/17 20:45 Sodium Chloride 0.9% [Normal Saline] 1,000 ml IV ASDIRECTED
[2017-10-25] MEDS ORDERED: Sodium Chloride 0.9% 1,000 ML IV ONE (20:42)
[2017-10-25] MEDS ORDERED: Magnesium Sulfate/Water 2 GM in Premix Bag 1 BAG IV ONE (20:42)
[2017-10-25] MEDS ORDERED: Sodium Chloride 0.9% 1,000 ML IV SCH (20:45)
== END 2017-10-25 22:22 ==
LOC: JD.ED 18:44 → SUPCPDRO 18:44 → JD.ED 22:22
DX: K92.1 Melena (principal); E83.42 Hypomagnesemia; E87.6 Hypokalemia; N28.9 Disorder of kidney and ureter, unspecified; I10 Essential (primary) hypertension; E11.9 Type 2 diabetes mellitus without complications; Z79.4 Long term (current) use of insulin; Z79.899 Other long term (current) drug therapy; Z91.013 Allergy to seafood; Z88.2 Allergy status to sulfonamides; Z88.8 Allergy status to other drugs, medicaments and biological substances
CPT/HCPCS: 36415; 80053; 83735; 85025; 85610; 85730; 87046; 87425; 87493; 87798; 89055; 96365; 99285; J7040; 99284; J3475

== ENCOUNTER 2020-06-15 16:18 | Emergency (ER) | payer MEDICARE, BC ==
[2020-06-15] MEDS ORDERED: Sodium Chloride 0.9% 10 ML Syringe FLUSH PRN (16:40)
[2020-06-15] MEDS ORDERED: Ondansetron 4 MG/2 ML SDV IVPUSH ONE (16:46)
[2020-06-15] MEDS ORDERED: Ondansetron 4 MG/2 ML SDV ONE (16:52)
--- NOTE | 2020-06-15 17:14 | EDM.PDOC ---
ED HPI GENERAL MEDICAL PROBLEM - General Chief Complaint: Respiratory Problem Stated Complaint: COVID POSITIVE Time Seen by Provider: 06/15/20 16:31 Source of Information: Reports: Patient, RN Notes Reviewed History Limitations: Reports: No Limitations - History of Present Illness INITIAL COMMENTS - FREE TEXT/NARRATIVE: Patient is a 65-year-old female who presents to the ED for the evaluation of COVID-19. Patient states that she was at a family at the beginning of June, and states that she was exposed to COVID-19. She notes that everyone at the tested positive. She has been having worsening of her symptoms, since June 06, but states was tested yesterday for coronavirus and found out that she was positive. Patient complains mostly of incredible nausea, vomiting, she does not think that she has been febrile at home, but she does feel chilled, and shortness of breath. Patient states that she feels like she is going to pass out, she cannot complete sentences without getting short of breath. Patient's O2 sats on room air were 86 to 88%. Blood pressure is 173/63, heart rate is 63 with normal sinus rhythm identified. Patient's respiratory rate is 20, and appears to be somewhat labored. Patient was placed on oxygen shortly after arrival to the ER, and on 2 L of oxygen, she was satting in the 90 to 91% range. Nursing states that they are going to titrate oxygen as needed to keep her around 92%. - Related Data Allergies Allergy/AdvReac Type Severity Reaction Status Date / Time lisinopril Allergy Severe Hives Verified 06/15/20 16:35 Sulfa (Sulfonamide Allergy Severe Rash Verified 06/15/20 16:35 Antibiotics) shrimp AdvReac Vomiting Verified 06/15/20 16:35 Home Meds: Home Meds cloNIDine [Catapres] 0.3 mg PO BID 10/01/17 [History] Citalopram Hydrobromide [Celexa] 10 mg PO DAILY 10/25/17 [History] Insulin Glargine,Hum.Rec.Anlog [Lori Kapoor] 62 unit PO BEDTIME 10/25/17 [History] Lactobacillus Rhamnosus GG [Culturelle] 1 cap PO DAILY 10/25/17 [History] Magnesium 400 mg PO DAILY 10/25/17 [History] Novalog 0 unit INJECT ASDIRECTED 10/25/17 [History] Cholecalciferol (Vitamin D3) [Vitamin D3] 0 unit PO DAILY 06/15/20 [History] Cyanocobalamin (Vitamin B12) [Vitamin B12] 1,000 mcg PO DAILY 06/15/20 [History] Diltiazem [Tiazac] 240 mg PO DAILY 06/15/20 [History] HCTZ/Triamterene [Maxzide 25-37.5 MG] 1 tab PO DAILY 06/15/20 [History] Rosuvastatin Calcium 25 mg PO DAILY 06/15/20 [History] Past Medical History HEENT History: Reports: Impaired Vision Other HEENT History: Wears glasses Cardiovascular History: Reports: High Cholesterol, Hypertension Musculoskeletal History: Reports: Arthritis Psychiatric History: Reports: Depression Endocrine/Metabolic History: Reports: Diabetes, Type II, Obesity/BMI 30+ - Infectious Disease History Infectious Disease History: Reports: Novel Coronavirus (diagnosed jun 14, 2020) Other Infectious Disease History: pt is placed on isolation - Past Surgical History GI Surgical History: Reports: Appendectomy, Colon, Colonoscopy Female Surgical History: Reports: Section, Tubal Ligation Endocrine Surgical History: Reports: Parathyroidectomy Musculoskeletal Surgical History: Reports: ORIF Social & Family History - Tobacco Use Smoking Status *Q: Never Smoker - Caffeine Use Caffeine Use: Reports: None - Recreational Drug Use Recreational Drug Use: No - Living Situation & Occupation Living situation: Reports: Occupation: Employed ED ROS GENERAL - Review of Systems Review Of Systems: Comprehensive ROS is negative, except as noted in HPI. ED EXAM, GENERAL - Physical Exam Exam: See Below Exam Limited By: No Limitations General Appearance: Alert, WD/WN, No Apparent Distress Head: Atraumatic, Normocephalic Neck: Normal Inspection Respiratory/Chest: Lungs Clear, Normal Breath Sounds, No Accessory Muscle Use, Chest Non-Tender, Respiratory Distress (mild distress noted, the patient gets SOB with talking.) Cardiovascular: Normal Peripheral Pulses, Regular Rate, Rhythm, No Edema, No Murmur Peripheral Pulses: 2+: Radial (L), Radial (R) GI/Abdominal: Normal Bowel Sounds, Soft, Non-Tender, No Distention, No Mass Extremities: Normal Inspection, Normal Capillary Refill Neurological: Alert, Oriented, Normal Cognition, No Motor/Sensory Deficits Psychiatric: Normal Affect, Normal Mood Skin Exam: Warm, Dry, Intact, Normal Color, No Rash EKG INTERPRETATION EKG Date: 06/15/20 Time: 16:51 Rhythm: NSR Rate (Beats/Min): 64 [place]: Normal P-Wave: Present QRS: Normal ST-T: Normal QT: Normal EKG Interpretation Comments: No obvious ischemia or acute ST changes noted, reviewed by myself and Dr. Adkins. He does note Q waves in lead III. Course - Vital Signs Last Recorded V/S: Last Vital Signs Temp 98.9 F 06/15/20 16:32 Pulse 63 06/15/20 18:58 Resp 22 H 06/15/20 18:58 BP 138/64 06/15/20 18:58 Pulse Ox 95 06/15/20 18:58 - Orders/Labs/Meds Orders: Active Orders 24 hr Category Date Time Status EKG Documentation Completion [RC] STAT Care 06/15/20 16:38 Active Peripheral IV Care [RC] . DIRECTED Care 06/15/20 16:40 Active Sodium Chloride 0.9% [Saline Flush] Med 06/15/20 16:40 Active 10 ml FLUSH ASDIRECTED PRN Blood Culture x2 Reflex Set [OM.PC] Stat Oth 06/15/20 16:38 Ordered Peripheral IV Insertion Adult [OM.PC] Routine Oth 06/15/20 16:40 Ordered Medication Orders Sodium Chloride (Saline Flush) 10 ml FLUSH ASDIRECTED PRN PRN Reason: Keep Vein Open Last Admin: 06/15/20 16:49 Dose: 10 ml Documented by: CAROLYNN Labs: Laboratory Tests 06/15/20 06/15/20 06/15/20 Range/Units 16:38 16:38 16:50 WBC 9.58 (3.98-10.04) K/mm3 RBC 4.59 (3.98-5.22) M/mm3 Hgb 13.6 D (11.2-15.7) gm/dl Hct 41.7 (34.1-44.9) % MCV 90.8 (79.4-94.8) fl MCH 29.6 (25.6-32.2) pg MCHC 32.6 (32.2-35.5) g/dl RDW Std Deviation 47.4 H (36.4-46.3) fL Plt Count 265 (182-369) K/mm3 MPV 11.7 (9.4-12.3) fl Neutrophils % (Manual) 75 H (40-60) % Band Neutrophils % 0 (0-10) % Lymphocytes % (Manual) 20 (20-40) % Atypical Lymphs % 0 % Monocytes % (Manual) 4 (2-10) % Eosinophils % (Manual) 0 L (0.7-5.8) % Basophils % (Manual) 1 (0.1-1.2) Platelet Estimate Adequate RBC Morph Comment Normal PT (9.7-12.0) SECONDS INR APTT (22-31) SECONDS D-Dimer, Quantitative (0.19-0.50) mg/L Puncture Site Lt radial ABG pH 7.51 H (7.35-7.45) ABG pCO2 27.5 L (35.0-45.0) mmHg ABG pO2 63.0 L (80.0-100.0) mmHg ABG HCO3 22.0 (22.0-26.0) meq/L ABG O2 Saturation 92.2 L (96.0-97.0) % ABG Base Excess 0.6 (-2-2.0) Asael Test Positive FiO2 0.00 L (21.00-100.00) % Sodium (136-145) mEq/L Potassium (3.5-5.1) mEq/L Chloride (98-107) mEq/L Carbon Dioxide (21-32) mEq/L Anion Gap (5-15) BUN (7-18) mg/dL Creatinine (0.55-1.02) mg/dL Est Cr Clr Drug Dosing mL/min Estimated GFR (MDRD) (>60) mL/min BUN/Creatinine Ratio (14-18) Glucose (80-115) mg/dL Lactic Acid (0.4-2.0) mmol/L Calcium (8.5-10.1) mg/dL Magnesium (1.8-2.4) mg/dl Ferritin (8-252) ng/ml Total Bilirubin (0.2-1.0) mg/dL AST (15-37) U/L ALT (14-59) U/L Alkaline Phosphatase (46-116) U/L Lactate Dehydrogenase (81-234) U/L Creatine Kinase (26-192) U/L Troponin I (0.00-0.056) ng/mL C-Reactive Protein 9.2 H* (<1.0) mg/dL NT-Pro-B Natriuret Pep (0-125) pg/mL Total Protein (6.4-8.2) g/dl Albumin (3.4-5.0) g/dl Globulin gm/dL Albumin/Globulin Ratio (1-2) 06/15/20 06/15/20 06/15/20 Range/Units 16:50 16:50 16:50 WBC (3.98-10.04) K/mm3 RBC (3.98-5.22) M/mm3 Hgb (11.2-15.7) gm/dl Hct (34.1-44.9) % MCV (79.4-94.8) fl MCH (25.6-32.2) pg MCHC (32.2-35.5) g/dl RDW Std Deviation (36.4-46.3) fL Plt Count (182-369) K/mm3 MPV (9.4-12.3) fl Neutrophils % (Manual) (40-60) % Band Neutrophils % (0-10) % Lymphocytes % (Manual) (20-40) % Atypical Lymphs % % Monocytes % (Manual) (2-10) % Eosinophils % (Manual) (0.7-5.8) % Basophils % (Manual) (0.1-1.2) Platelet Estimate RBC Morph Comment PT 10.8 (9.7-12.0) SECONDS INR 1.01 APTT 26 (22-31) SECONDS D-Dimer, Quantitative 0.83 H (0.19-0.50) mg/L Puncture Site ABG pH (7.35-7.45) ABG pCO2 (35.0-45.0) mmHg ABG pO2 (80.0-100.0) mmHg ABG HCO3 (22.0-26.0) meq/L ABG O2 Saturation (96.0-97.0) % ABG Base Excess (-2-2.0) Asael Test FiO2 (21.00-100.00) % Sodium 137 D (136-145) mEq/L Potassium 3.1 L (3.5-5.1) mEq/L Chloride 98 D (98-107) mEq/L Carbon Dioxide 25 (21-32) mEq/L Anion Gap 17.1 H (5-15) BUN 37 H (7-18) mg/dL Creatinine 1.7 H (0.55-1.02) mg/dL Est Cr Clr Drug Dosing 29.29 mL/min Estimated GFR (MDRD) 30 (>60) mL/min BUN/Creatinine Ratio 21.8 H (14-18) Glucose 165 H (80-115) mg/dL Lactic Acid (0.4-2.0) mmol/L Calcium 8.7 (8.5-10.1) mg/dL Magnesium 1.9 (1.8-2.4) mg/dl Ferritin (8-252) ng/ml Total Bilirubin 0.4 (0.2-1.0) mg/dL AST 23 (15-37) U/L ALT 17 (14-59) U/L Alkaline Phosphatase 54 (46-116) U/L Lactate Dehydrogenase 263 H (81-234) U/L Creatine Kinase 47 (26-192) U/L Troponin I < 0.017 (0.00-0.056) ng/mL C-Reactive Protein (<1.0) mg/dL NT-Pro-B Natriuret Pep 94 (0-125) pg/mL Total Protein 8.6 H (6.4-8.2) g/dl Albumin 3.2 L (3.4-5.0) g/dl Globulin 5.4 gm/dL Albumin/Globulin Ratio 0.6 L (1-2) 06/15/20 06/15/20 Range/Units 16:50 16:50 WBC (3.98-10.04) K/mm3 RBC (3.98-5.22) M/mm3 Hgb (11.2-15.7) gm/dl Hct (34.1-44.9) % MCV (79.4-94.8) fl MCH (25.6-32.2) pg MCHC (32.2-35.5) g/dl RDW Std Deviation (36.4-46.3) fL Plt Count (182-369) K/mm3 MPV (9.4-12.3) fl Neutrophils % (Manual) (40-60) % Band Neutrophils % (0-10) % Lymphocytes % (Manual) (20-40) % Atypical Lymphs % % Monocytes % (Manual) (2-10) % Eosinophils % (Manual) (0.7-5.8) % Basophils % (Manual) (0.1-1.2) Platelet Estimate RBC Morph Comment PT (9.7-12.0) SECONDS INR APTT (22-31) SECONDS D-Dimer, Quantitative (0.19-0.50) mg/L Puncture Site ABG pH (7.35-7.45) ABG pCO2 (35.0-45.0) mmHg ABG pO2 (80.0-100.0) mmHg ABG HCO3 (22.0-26.0) meq/L ABG O2 Saturation (96.0-97.0) % ABG Base Excess (-2-2.0) Asael Test FiO2 (21.00-100.00) % Sodium (136-145) mEq/L Potassium (3.5-5.1) mEq/L Chloride (98-107) mEq/L Carbon Dioxide (21-32) mEq/L Anion Gap (5-15) BUN (7-18) mg/dL Creatinine (0.55-1.02) mg/dL Est Cr Clr Drug Dosing mL/min Estimated GFR (MDRD) (>60) mL/min BUN/Creatinine Ratio (14-18) Glucose (80-115) mg/dL Lactic Acid 1.9 (0.4-2.0) mmol/L Calcium (8.5-10.1) mg/dL Magnesium (1.8-2.4) mg/dl Ferritin 133 (8-252) ng/ml Total Bilirubin (0.2-1.0) mg/dL AST (15-37) U/L ALT (14-59) U/L Alkaline Phosphatase (46-116) U/L Lactate Dehydrogenase (81-234) U/L Creatine Kinase (26-192) U/L Troponin I (0.00-0.056) ng/mL C-Reactive Protein (<1.0) mg/dL NT-Pro-B Natriuret Pep (0-125) pg/mL Total Protein (6.4-8.2) g/dl Albumin (3.4-5.0) g/dl Globulin gm/dL Albumin/Globulin Ratio (1-2) Meds: Medications Generic Name Dose Route Start Last Admin Trade Name Freq PRN Reason Stop Dose Admin Sodium Chloride 10 ml 06/15/20 16:40 06/15/20 16:49 Saline Flush FLUSH 10 ml ASDIRECTED PRN Administration Keep Vein Open Discontinued Medications Generic Name Dose Route Start Last Admin Trade Name Freq PRN Reason Stop Dose Admin Ondansetron HCl 4 mg 06/15/20 16:46 06/15/20 16:52 Zofran IVPUSH 06/15/20 16:47 4 mg ONETIME ONE Administration Ondansetron HCl Confirm 06/15/20 16:52 Zofran Administered 06/15/20 16:53 [facility]ose [facility] Re-Assessments/Exams Free Text/Narrative Re-Assessment/Exam: 06/15/20 17:15 Patient presents to the ED for the evaluation of her ongoing COVID-19 symptoms. Patient was placed on oxygen shortly after triage. On initial exam, she does appear sick enough that she would likely need hospitalization, so a transfer would need to be facilitated. Have ordered basic labs, and a chest x-ray for initial evaluation. EKG is normal sinus rhythm, no acute abnormalities noted. 06/15/20 17:19 Official radiology read is pending, but chest x-ray has been taken, and does there seem to be slight prominence noted on the right lower base. X-rays were reviewed by myself and Dr. Adkins. 06/15/20 18:52 Laboratory evaluation has completed, LDH is elevated, CRP elevated at 9.2. White blood cell count is essentially normal no left shift. D-dimer is elevated at 0.83, patient does have renal insufficiency, creatinine 1.7, GFR 30. No CTA will be obtained at today's visit. Trope is negative, EKG again appear to be within normal limits. I was able to talk to [facility] in [place], and Dr. Priscila schwartz does accept for transfer and management. Patient will be transferred by ambulance service to [facility] for her COVID-19 symptoms. Departure - Departure Time of Disposition: 18:54 Disposition: DC/Tfer to Acute Hospital 02 Condition: Good Clinical Impression: COVID-19, Renal insufficiency - Discharge Information *PRESCRIPTION DRUG MONITORING PROGRAM REVIEWED*: No *COPY OF PRESCRIPTION DRUG MONITORING REPORT IN PATIENT ABRAHAM: No Referrals: PCP,Not In Area [Primary Care Provider] - Forms: ED Department Discharge Sepsis Event Note (ED) - Evaluation Sepsis Screening Result: No Definite Risk - Focused Exam Vital Signs: Vital Signs Temp Pulse Resp BP Pulse Ox Pulse Ox 06/15/20 18:58 63 22 H 138/64 95 06/15/20 17:00 91 L 06/15/20 16:55 91 L 06/15/20 16:54 88 L 06/15/20 16:46 90 L 06/15/20 16:32 98.9 F 63 20 173/63 H 88 L - My Orders Last 24 Hours: My Active Orders 06/15/20 16:38 EKG Documentation Completion [RC] STAT Blood Culture x2 Reflex Set [OM.PC] Stat 06/15/20 16:40 Peripheral IV Care [RC] . DIRECTED Sodium Chloride 0.9% [Saline Flush] 10 ml FLUSH ASDIRECTED PRN Peripheral IV Insertion Adult [OM.PC] Routine - Assessment/Plan Last 24 Hours: My Active Orders 06/15/20 16:38 EKG Documentation Completion [RC] STAT Blood Culture x2 Reflex Set [OM.PC] Stat 06/15/20 16:40 Peripheral IV Care [RC] . DIRECTED Sodium Chloride 0.9% [Saline Flush] 10 ml FLUSH ASDIRECTED PRN Peripheral IV Insertion Adult [OM.PC] Routine
--- NOTE | 2020-06-15 17:28 | CR ---
Chest: Portable view of the chest was obtained. Comparison: Prior chest x-ray of 10/01/17. Heart size and mediastinum are normal. Lung markings are slightly increased which appears stable from previous exam. No acute appearing parenchymal change is seen. Minimal atelectasis is seen within the left lung base. Bony structures are unremarkable for the patient's age. Impression: 1. Nothing acute is definitely appreciated on portable chest x-ray. Diagnostic code #2 This report was dictated in MDT
== END 2020-06-15 21:23 ==
LOC: JD.ED 16:18
DX: U07.1 COVID-19 (principal); N28.9 Disorder of kidney and ureter, unspecified; E11.9 Type 2 diabetes mellitus without complications; E78.00 Pure hypercholesterolemia, unspecified; I10 Essential (primary) hypertension; E66.9 Obesity, unspecified; F32.9 Major depressive disorder, single episode, unspecified; Z68.33 Body mass index [BMI] 33.0-33.9, adult; Z88.8 Allergy status to other drugs, medicaments and biological substances; Z88.2 Allergy status to sulfonamides; Z91.013 Allergy to seafood; Z79.4 Long term (current) use of insulin
CPT/HCPCS: 36415; 36600; 71045; 80053; 82550; 82728; 82803; 83605; 83615; 83735; 83880; 84484; 85007; 85027; 85379; 85610; 85730; 86140; 93005; 96374; 99285; J2405; 93010

== ENCOUNTER 2025-06-26 12:00 | Emergency (ER) | payer MEDICARE, BC ==
[2025-06-26] MEDS: Acetaminophen/HYDROcodone 325-10 MG Tab PO ONE (13:50)
[2025-06-26] MEDS: Ondansetron 4 MG Tab.DIS PO ONE (13:52)
== END 2025-06-26 15:05 | disposition home or self-care (01) ==
LOC: JD.ED 12:00
DX: G89.18 Other acute postprocedural pain (principal); Z87.81 Personal history of (healed) traumatic fracture; Z91.81 History of falling; I10 Essential (primary) hypertension; E78.00 Pure hypercholesterolemia, unspecified; E66.9 Obesity, unspecified; E11.9 Type 2 diabetes mellitus without complications; Z88.0 Allergy status to penicillin; Z88.2 Allergy status to sulfonamides; Z91.013 Allergy to seafood; Z88.8 Allergy status to other drugs, medicaments and biological substances; Z79.4 Long term (current) use of insulin; Z79.899 Other long term (current) drug therapy; Z86.16 Personal history of COVID-19; Z90.49 Acquired absence of other specified parts of digestive tract
CPT/HCPCS: 70450; 99284; A9270